=== PATIENT | male | born 1975 | race Caucasian/White ===

== ENCOUNTER 2023-09-14 18:07 | Emergency (ER) | payer SELFPAY ==
[2023-09-14 18:10] VITALS: BP 115/74
--- NOTE | 2023-09-14 19:03 | ED.GENMED ---
History of Present Illness
General
Chief Complaint: Skin Problem
Source: patient
Exam Limitations: none
Time Seen by Provider: 09/14/23 18:44
Nursing documentation reviewed up to this point in time: agreed with
Travel History
Have you had any contact with someone who has COVID-19?: No
Do you have any symptoms of coronavirus? Fever > 100 degrees, chills, cough, shortness of breath, sore throat, loss of taste or smell, muscle aches, or headache?: No
History of Present Illness
History of Present Illness:
pt is a 48y/o M with no ig pmh
here with an ongoing itchy rash to right forearm/hand, neck and face
he thinks it has been present for a few months
he likes to garden at home, spends a lot of time there and doesn't wear gloves
he has itchiness and some weeping
no rash in beetween his web spaces or in groin
no fever/chills
doesn't nkow what he has tried topically but has applied some creams
Past History
Past History
ED Past Medical History: None
ED Past Surgical History: None
Review of Systems
Review of Systems
Allergies reviewed?: Yes
All Other Systems: Not applicable
Phy Exam
Physical Exam
Physical Exam:
GENERAL: Alert , in no apparent distress
NECK: Supple
ent normal, no lesions
lungs: clear
NEUROLOGICAL: Alert and oriented, no focal neuro deficits
SKIN: Warm and dry, pt has a erythematous papular rash linear in some distributions, some weeping slightly with scabs to right forearm and left neck and a few on his forehead
he has sunburnt skin in the t shirt exposed areas
MUSCULOSKELETAL: No edema, well perfused.
PSYCH: Normal and appropriate interaction.
Course
Orders/Labs/Results
Orders:
Orders
09/14/23 19:02
Bedside Glucose- Treatment ONCE
Abnormal Lab Results
09/14/23
19:07
POC Glucose 105 H mg/dl
(70-99)
Vital Signs
Initial and Last Documented VS:
Initial Vital Signs
Temp Pulse Resp BP Pulse Ox
98.0 F 78 16 115/74 97
09/14/23 18:10 09/14/23 18:10 09/14/23 18:10 09/14/23 18:10 09/14/23 18:10
Last Documented Vital Signs
Temp Pulse Resp BP Pulse Ox
98.0 F 78 16 115/74 97
09/14/23 18:10 09/14/23 18:10 09/14/23 18:10 09/14/23 18:10 09/14/23 18:10
MDM/Problems Addressed
Differential Diagnosis Includes:
contact dermatitis, infestation
MDM/Problems Addressed:
48 yo M
overweight
no reported medical problems
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
rash appears like contact derm from pant oil
no signs of burrows or web space involvement to suggest scabies
no signs of infectino
will givne topical steroids and burst steroids
acucheck normal
*Critical Care Note
Total Time (30-74mins, 75-104mins- exclusive of procedures): Not Applicable
ED Attending Note
-
Portions of this chart may have been created with voice recognition software.� Occasional wrong word or��sound alike� substitutions may have occurred due to the inherent limitations of voice recognition software.
Discharge Plan
Departure
Patient Disposition: Home (Routine Discharge)
Date of Disposition: 09/14/23
Time of Disposition: 19:12
Patient with high blood pressure during this ER visit?: No
Condition: Fair
Covid-19: Not Applicable
Discharge Problem:
Contact dermatitis
Instructions: Poison [place], Poison [place], Poison [place] (DC), Dermatitis ( Contact )
Prescriptions:
New
triamcinolone acetonide 0.5 % ointment
1 applic topical BID 7 Days Qty: 15 0RF
prednisone 50 mg tablet
50 mg PO DAILY Qty: 5 0RF
Activity Restrictions/Additional Instructions:
Take the prednisone once a day for 5 days. You can also apply the cream twice a day for 7 days. You can take Benadryl as needed for itch. This appears to be a rash that you are getting from coming in contact with plant oil. You should make sure
to wear gloves and long sleeves in your garden. Wash your sheets and any thing that you wear over and over just in case there is wheels within the clothing that you are spreading the rash with. Return to your family doctor for follow-up. Return
here for any concerns do not use the cream longer than 7 days the cream on your face can cause some skin lightening, make sure to wear a hat or sunscreen as well
Interventions
Interventions:
*ED COVID-19 Vaccine History Last Done: 09/14/23 18:10
*Nursing Disposition Last Done: 09/14/23 19:45
ED-Skin Assessment Last Done: 09/14/23 19:44
Discharge Date and Time
Discharge Date/Time: 09/14/23 19:45
Print Language: HEBREW
[2023-09-14 19:09] LABS: Glucose - Point of Care 105 mg/dl (70-99)
== END 2023-09-14 19:45 | disposition home or self-care (01) ==
LOC: EMR 18:07
PROVIDERS: EMERGENCY PHYSICIAN Emergency Medicine
DX: L25.9 Unspecified contact dermatitis, unspecified cause (principal)
CPT/HCPCS: 99282; 82962